=== PATIENT | female | born 1960 | race Hispanic/Latino ===

== ENCOUNTER 2019-08-23 13:13 | Emergency (ER) | payer SELFPAY ==
[~2019-08-23] VITALS: Ht 157.5 cm; Wt 122.5 kg
--- OUTSIDE RECORDS SUMMARY | 2019-08-23 13:16 | XMS REPORT ---
Author Author [facility] [place] Address Unknown Phone Unavailable Care Team Providers Care Panel Wirer Name Role Phone Unavailable Unavailable Problems This patient has no known problems. Allergies, Adverse Reactions, Alerts This patient has no known allergies or adverse reactions. Medications This patient has no known medications. Encounters Start Date/Time End Date/Time Encounter Type Admission Type Attending [facility] Care Department Encounter ID 2019-07-23 09:02:32 2019-07-23 09:02:32 Outpatient [facility] [id number] 2019-07-23 00:00:00 2019-07-23 00:00:00 Outpatient [facility] [id number] 2019-05-09 15:25:39 2019-05-09 15:25:39 Outpatient [facility] [id number] 2019-04-02 00:00:00 2019-04-02 00:00:00 Outpatient [facility] [id number] 2019-03-30 08:46:02 2019-03-30 08:46:02 Outpatient [facility] [id number] 2019-03-16 08:32:19 2019-03-16 08:32:19 Outpatient [facility] [id number] 2019-03-16 08:22:00 2019-03-16 08:22:00 Outpatient [facility] [id number] 2019-03-16 07:09:24 2019-03-16 07:09:24 Outpatient [facility] [id number] 2019-03-16 00:00:00 2019-03-16 00:00:00 Outpatient [facility] [id number] 2019-02-19 09:04:11 2019-02-19 09:04:11 Outpatient [facility] [id number] 2018-12-07 00:00:00 2018-12-07 00:00:00 Outpatient [facility] [id number] 2018-12-07 00:00:00 2018-12-07 00:00:00 Outpatient [facility] [id number] 2018-12-06 00:00:00 2018-12-06 00:00:00 Outpatient [facility] [id number] 2018-11-08 00:00:00 2018-11-08 00:00:00 Outpatient [facility] [id number] 2018-09-20 08:47:02 2018-09-20 08:47:02 Outpatient [facility] [id number] 2018-09-11 09:13:33 2018-09-11 09:13:33 Outpatient [facility] [id number] 2018-09-11 00:00:00 2018-09-11 00:00:00 Outpatient [facility] [id number] 2018-08-07 00:00:00 2018-08-07 00:00:00 Outpatient [facility] [id number] 2018-07-27 00:00:00 2018-07-27 00:00:00 Outpatient [facility] [id number] 2018-07-25 00:00:00 2018-07-25 00:00:00 Outpatient [facility] [id number] 2018-07-24 00:00:00 2018-07-24 00:00:00 Outpatient [facility] [id number] 2018-07-17 15:26:02 2018-07-17 15:26:02 Outpatient [facility] [id number] 2018-07-17 14:15:34 2018-07-17 14:15:34 Outpatient [facility] [id number] 2018-07-11 00:00:00 2018-07-11 00:00:00 Outpatient [facility] [id number] 2018-06-22 09:06:49 2018-06-22 09:06:49 Outpatient [facility] [id number] 2018-06-16 00:00:00 2018-06-16 00:00:00 Outpatient [facility] [id number] 2018-06-14 14:05:05 2018-06-14 14:05:05 Outpatient [facility] [id number] 2018-06-09 00:00:00 2018-06-09 00:00:00 Outpatient [facility] [id number] 2018-06-06 14:28:25 2018-06-06 14:28:25 Outpatient [facility] [id number] 2018-06-06 08:47:00 2018-06-06 08:47:00 Outpatient [facility] [id number] 2018-06-01 00:00:00 2018-06-01 00:00:00 Outpatient [facility] [id number] 2018-06-01 00:00:00 2018-06-01 00:00:00 Outpatient [facility] [id number] 2018-05-31 13:44:42 2018-05-31 13:44:42 Outpatient [facility] [id number] 2018-05-22 08:58:07 2018-05-22 08:58:07 Outpatient [facility] [id number] 2017-12-07 13:11:51 2017-12-07 13:11:51 Outpatient [facility] [id number] 2017-11-21 07:51:19 2017-11-21 07:51:19 Outpatient [facility] [id number] 2017-10-14 00:00:00 2017-10-14 00:00:00 Outpatient [facility] [id number] 2017-10-05 00:00:00 2017-10-05 00:00:00 Outpatient [facility] [id number] 2017-09-22 07:04:49 2017-09-22 07:04:49 Outpatient [facility] [id number] 2017-09-16 00:00:00 2017-09-16 00:00:00 Outpatient [facility] [id number] 2017-09-12 12:58:12 2017-09-12 12:58:12 Outpatient [facility] [id number] 2017-09-12 07:40:58 2017-09-12 07:40:58 Outpatient [facility] [id number] 2017-09-08 07:06:19 2017-09-08 07:06:19 Outpatient [facility] [id number] 2017-09-06 06:58:30 2017-09-06 06:58:30 Outpatient [facility] [id number] 2017-08-25 00:00:00 2017-08-25 00:00:00 Outpatient [facility] [id number] 2017-08-17 08:24:32 2017-08-17 08:24:32 Outpatient [facility] [id number] 2017-08-10 12:05:45 2017-08-10 12:05:45 Outpatient [facility] [id number] 2017-08-10 10:26:12 2017-08-10 10:26:12 Outpatient [facility] [id number] 2017-08-01 08:01:16 2017-08-01 08:01:16 Outpatient [facility] [id number] 2017-08-01 08:01:08 2017-08-01 08:01:08 Outpatient [facility] [id number] 2017-07-13 00:00:00 2017-07-13 00:00:00 Outpatient [facility] [id number] 2017-07-11 08:12:28 2017-07-11 08:12:28 Outpatient [facility] [id number] 2017-07-04 13:05:47 2017-07-04 13:05:47 Outpatient [facility] [id number] 2017-07-04 07:56:10 2017-07-04 07:56:10 Outpatient [facility] [id number] 2017-06-30 00:00:00 2017-06-30 00:00:00 Outpatient [facility] [id number] 2017-06-27 13:32:41 2017-06-27 13:32:41 Outpatient [facility] [id number] 2017-06-27 11:44:52 2017-06-27 11:44:52 Outpatient [facility] [id number] 2017-06-08 00:00:00 2017-06-08 00:00:00 Outpatient [facility] [id number] 2017-05-25 15:21:38 2017-05-25 15:21:38 Outpatient [facility] [id number] 2017-05-16 14:45:15 2017-05-16 14:45:15 Outpatient [facility] [id number] 2017-05-13 00:00:00 2017-05-13 00:00:00 Outpatient [facility] [id number] 2017-05-11 15:30:36 2017-05-11 15:30:36 Outpatient [facility] [id number] 2017-04-28 14:32:18 2017-04-28 14:32:18 Outpatient [facility] [id number] 2017-04-27 12:58:45 2017-04-27 12:58:45 Outpatient [facility] [id number] 2017-04-22 07:29:57 2017-04-22 07:29:57 Outpatient [facility] [id number] 2017-03-04 10:58:35 2017-03-04 10:58:35 Outpatient [facility] [id number]
[2019-08-23] MEDS ORDERED: ASPIRIN 81 MG CHEW TAB PO ONE (14:00)
[2019-08-23 14:19] LABS: BASOPHILS % 0.3 % (0.0-1.0); EOSINOPHILS # (AUTO) 0.3 (0.0-0.4); EOSINOPHILS % 2.7 % (0.0-6.0); HEMATOCRIT 40.9 % (34.2-44.1); HEMOGLOBIN 13.2 g/dL (12.0-16.0); LYMPHOCYTES # (AUTO) 1.9 (1.0-3.2); MEAN CORPUSCULAR HEMOGLOBIN 28.1 pg (28-32); MEAN CORPUSCULAR HGB CONC 32.3 g/dL (31-35); MONOCYTES # (AUTO) 0.7 (0.2-0.8); MONOCYTES % 5.9 % (4.4-11.3); NEUTROPHILS # (AUTO) 9.5 (2.1-6.9); NEUTROPHILS % 75.8 % (38.7-80.0); PLATELET COUNT 355 x10e3/uL (140-360); RED CELL DISTRIBUTION WIDTH 12.9 % (11.7-14.4)
--- NOTE | 2019-08-23 14:27 | Diagnostic Imaging Report ---
EXAMINATION: CHEST SINGLE (PORTABLE) INDICATION: Chest pain COMPARISON: None FINDINGS: LINES/TUBES:EKG leads overlie the chest. LUNGS:The study is underpenetrated, likely related to patient body habitus. There is perihilar fullness and indistinctness of the pulmonary vasculature. PLEURA:No pleural effusion or pneumothorax. MEDIASTINUM:The cardiomediastinal silhouette appears normal in size and shape. BONES/SOFT TISSUES:No acute osseous injury. ABDOMEN:No free air under the diaphragm. IMPRESSION: Underpenetrated study, likely related to patient body habitus. Likely mild pulmonary interstitial edema. No focal pneumonia. Signed by: Navin Diaz MD on 08/23/2019 2:24 PM
[2019-08-23 14:30] LABS: BILIRUBIN,URINE NEGATIVE (NEGATIVE); COLOR,URINE YELLOW (YELLOW); KETONES,URINE NEGATIVE (NEGATIVE); LEUKOCYTE ESTERASE ,URINE NEGATIVE (NEGATIVE); NITRITE,URINE NEGATIVE (NEGATIVE); PROTEIN,URINE DIPSTICK NEGATIVE (NEGATIVE); URINE UROBILINOGEN 0.2 mg/dL (0.2 - 1)
[2019-08-23 14:40] LABS: ALANINE AMINOTRANSFERASE 17 IU/L (0-55); ALBUMIN 3.4 g/dL (3.5-5.0); ALBUMIN/GLOBULIN RATIO 0.8 (0.8-2.0); ALKALINE PHOSPHATASE 91 IU/L (40-150); ANION GAP 11.8 mmol/L (8-16); BLOOD UREA NITROGEN 14 mg/dL (7-26); BUN/CREATININE RATIO 18 (6-25); CALCIUM 9.5 mg/dL (8.4-10.2); CARBON DIOXIDE 27 mmol/L (22-29); CHLORIDE 104 mmol/L (98-107); CREATINE KINASE 84 IU/L (29-168); CREATININE, SERUM 0.79 mg/dL (0.57-1.11); EST GLOMERULAR FILTRATION RATE > 60 ML/MIN (60-); GLUCOSE 128 mg/dL (74-118); POTASSIUM 3.8 mmol/L (3.5-5.1); SODIUM 139 mmol/L (136-145)
[2019-08-23 14:40] LABS: CLARITY,URINE CLEAR (CLEAR)
[2019-08-23 14:45] LABS: EPITHELIAL CELLS,URINE FEW /LPF; RBC,URINE 0-5 /HPF (0-5)
[2019-08-23 14:56] LABS: INR 1.03
[2019-08-23 14:57] LABS: PARTIAL THROMBOPLASTIN TIME 31.5 seconds (23.8-35.5)
[2019-08-23] MEDS ORDERED: KETOROLAC TROMETHAMINE 30 MG/ML VIAL IV ONE (15:07)
[2019-08-23] MEDS ORDERED: KETOROLAC TROME10 MG PO (15:14)
[2019-08-23 15:58] VITALS: BP 151/67
== END 2019-08-23 15:44 | disposition home or self-care (01) ==
LOC: ER 13:13
DX: R07.89 Other chest pain (principal); I10 Essential (primary) hypertension; E11.9 Type 2 diabetes mellitus without complications; E78.5 Hyperlipidemia, unspecified; F41.9 Anxiety disorder, unspecified
CPT/HCPCS: 36415; 71045; 80053; 81001; 82550; 82553; 83735; 84484; 85025; 85610; 85730; 93005; 96374; 99284; J1885

== ENCOUNTER 2020-04-04 09:52 | Inpatient (IN) | payer SELFPAY ==
[~2020-04-04] VITALS: Ht 157.5 cm; Wt 108.9 kg
[~2020-04-04 09:52] MED LIST: KETOROLAC TROME10 MG PO
--- NOTE | 2020-04-04 11:08 | NUR ---
recd' report from tessie austin, for continuity of care
[2020-04-04 11:10] LABS: BASOPHILS % 0.1 % (0.0-1.0); EOSINOPHILS % 0.5 % (0.0-6.0); HEMATOCRIT 39.3 % (34.2-44.1); HEMOGLOBIN 12.7 g/dL (12.0-16.0); LYMPHOCYTES # (AUTO) 1.3 (1.0-3.2); LYMPHOCYTES % 16.7 % (18.0-39.1); MEAN CORPUSCULAR HEMOGLOBIN 27.7 pg (28-32); MEAN CORPUSCULAR HGB CONC 32.3 g/dL (31-35); MEAN CORPUSCULAR VOLUME 85.6 fL (81-99); MONOCYTES # (AUTO) 0.5 (0.2-0.8); MONOCYTES % 5.9 % (4.4-11.3); NEUTROPHILS # (AUTO) 5.8 (2.1-6.9); NEUTROPHILS % 76.4 % (38.7-80.0); PLATELET COUNT 230 x10e3/uL (140-360); RED BLOOD COUNT 4.59 x10e6/uL (3.6-5.1)
[2020-04-04 11:20] LABS: INR 0.96; PROTHROMBIN TIME 13.3 seconds (11.9-14.5)
[2020-04-04 11:21] LABS: PARTIAL THROMBOPLASTIN TIME 30.1 seconds (23.8-35.5)
[2020-04-04] MEDS: CEFTRIAXONE SOD 1 GM/NS 50 ML 50 ML IV SCH (11:27)
--- NOTE | 2020-04-04 11:27 | Diagnostic Imaging Report ---
EXAMINATION: CHEST SINGLE (PORTABLE) INDICATION: Shortness of breath COMPARISON: None FINDINGS: LINES/TUBES:None LUNGS:The lungs are moderately inflated. Increased bilateral lower lung interstitial opacities. PLEURA:No pleural effusion or pneumothorax. MEDIASTINUM:The cardiomediastinal silhouette appears normal in size and shape. Atherosclerotic calcifications of the thoracic aorta. BONES/SOFT TISSUES:No acute osseous injury. ABDOMEN:No free air under the diaphragm. IMPRESSION: Increased bilateral lower lung interstitial opacities may represent mild pulmonary interstitial edema however viral pneumonitis could also have this appearance and should be clinically excluded. Signed by: Navin Diaz MD on 04/04/2020 11:24 AM
[2020-04-04 11:28] LABS: ALANINE AMINOTRANSFERASE 39 IU/L (0-55); ALBUMIN 2.9 g/dL (3.5-5.0); ALBUMIN/GLOBULIN RATIO 0.6 (0.8-2.0); ALKALINE PHOSPHATASE 104 IU/L (40-150); ANION GAP 13.2 mmol/L (8-16); BLOOD UREA NITROGEN 9 mg/dL (7-26); BUN/CREATININE RATIO 13 (6-25); CALCIUM 8.7 mg/dL (8.4-10.2); CARBON DIOXIDE 27 mmol/L (22-29); CHLORIDE 106 mmol/L (98-107); CREATINE KINASE 63 IU/L (29-168); CREATININE, SERUM 0.68 mg/dL (0.57-1.11); EST GLOMERULAR FILTRATION RATE > 60 ML/MIN (60-); GLUCOSE 145 mg/dL (74-118); POTASSIUM 4.2 mmol/L (3.5-5.1); SODIUM 142 mmol/L (136-145)
[2020-04-04] MEDS: AZITHROMYCIN 500MG/NS 250 ML 250 ML IV SCH (13:21)
[2020-04-04] MEDS ORDERED: SODIUM CHLORIDE 0.9% 1000ML 1,000 ML IV SCH (14:15)
[2020-04-04] MEDS ORDERED: ALBUTEROL SULFATE HFA 8GM INHALATION AEROSOL INH PRN (14:15)
--- NOTE | 2020-04-04 14:41 | NUR ---
placed on 2l of o2 per dr. jackson's orders
--- NOTE | 2020-04-04 14:56 | Emergency Department Note ---
History of Present Illnes History of Present Illness Chief Complaint: COVID PUI History of Present Illness This is a 60 year old female here for cough and shortness of breath for the last 2 weeks, states had strep 2 weeks ago and continued with cough and progressed to SOB. has appt for COVID test on Tuesday. Historian: Patient Arrival Mode: Car Commission Broker Required: No Onset (how long ago): day(s) (12) Location: ALL OVER Quality: ACHY Radiation: Reports non-radiation Severity: moderate Onset quality: gradual Timing of current episode: intermittent Progression: waxing and waning Chronicity: new Context: Reports recent illness Relieving factors: none Exacerbating factors: none Associated symptoms: Reports cough, Reports fever/chills, Reports malaise, Reports weakness Past Medical/Family History Physician Review I have reviewed the patient's past medical and family history. Any updates have been documented here. Past Medical History Recent Fever: No Clinical Suspicion of Infectio: No New/Unexplained Change in Ment: No Past Medical History: Hypertension, Diabetes, Anxiety, Hyperlipedemia Other Medical History: Arthritis Bladder problems Past Surgical History: Hysterectomy Other Surgery: Bilateral carpal tunnel surgery Left knee arthroscopy Social History Smoking Cessation: Never Smoker Counseling Performed: No Alcohol Use: None Any Illegal Drug Use: No TB Exposure/Symptoms: No Physically hurt or threatened: No Other Any Pre-Existing Lines (PICC,: No Is patient up to date on immun: Yes Last Flu: utd Last Pneumovax: utd Review of Systems Review of Systems Constitutional: Reports fever, Reports malaise, Reports weakness EENTM: Reports no symptoms Cardiovascular: Reports no symptoms Respiratory: Reports chest congestion, Reports cough, Reports dyspnea, Reports dyspnea on exertion Gastrointestinal: Reports no symptoms Genitourinary: Reports no symptoms Musculoskeletal: Reports no symptoms Integumentary: Reports no symptoms Neurological: Reports no symptoms Psychological: Reports no symptoms Endocrine: Reports no symptoms Hematological/Lymphatic: Reports no symptoms Physical Exam Related Data Allergies: Coded Allergies: codeine (Verified Allergy, Intermediate, hives, itching, rash, 08/23/19) metronidazole (Verified Allergy, Intermediate, hives, itching, rash, 08/23/19) morphine (Verified Allergy, Intermediate, itching, rash, hives, 08/23/19) Triage Vital Signs Vital Signs Date Time Temp Pulse Resp B/P (MAP) Pulse Ox O2 Delivery O2 Flow Rate FiO2 04/04/20 10:15 98.7 64 20 151/71 94 Vital signs reviewed: Yes (O2 SAT 93% ON RA) Physical Exam CONSTITUTIONAL Constitutional: Present well-developed, Present well-nourished HENT HENT: Present normocephalic, Present atraumatic, Present oropharynx clear/moist, Present nose normal HENT L/R: Present left ext ear normal, Present right ext ear normal EYES Eyes: Reports PERRL, Reports conjunctivae normal NECK Neck: Present ROM normal PULMONARY Pulmonary: Present other (DECR BREATH SOUNDS THROUGHOUT) CARDIOVASCULAR Cardiovascular: Present regular rhythm, Present heart sounds normal, Present capillary refill normal, Present normal rate GASTROINTESTINAL Abdominal: Present soft, Present nontender, Present bowel sounds normal GENITOURINARY Genitourinary: Present exam deferred SKIN Skin: Present warm, Present dry MUSCULOSKELETAL Musculoskeletal: Present ROM normal NEUROLOGICAL Neurological: Present alert, Present oriented x 3, Present no gross motor or sensory deficits PSYCHOLOGICAL Psychological: Present mood/affect normal, Present judgement normal Results Laboratory Result Diagram: 04/04/20 1057 04/04/20 1057 Laboratory Laboratory Tests Test 04/04/20 10:57 White Blood Count 7.61 x10e3/uL (4.8-10.8) Red Blood Count 4.59 x10e6/uL (3.6-5.1) Hemoglobin 12.7 g/dL (12.0-16.0) Hematocrit 39.3 % (34.2-44.1) Mean Corpuscular Volume 85.6 fL (81-99) Mean Corpuscular Hemoglobin 27.7 pg (28-32) Mean Corpuscular Hemoglobin Concent 32.3 g/dL (31-35) Red Cell Distribution Width 13.0 % (11.7-14.4) Platelet Count 230 x10e3/uL (140-360) Neutrophils (%) (Auto) 76.4 % (38.7-80.0) Lymphocytes (%) (Auto) 16.7 % (18.0-39.1) Monocytes (%) (Auto) 5.9 % (4.4-11.3) Eosinophils (%) (Auto) 0.5 % (0.0-6.0) Basophils (%) (Auto) 0.1 % (0.0-1.0) Neutrophils # (Auto) 5.8 (2.1-6.9) Lymphocytes # (Auto) 1.3 (1.0-3.2) Monocytes # (Auto) 0.5 (0.2-0.8) Eosinophils # (Auto) 0.0 (0.0-0.4) Basophils # (Auto) 0.0 (0.0-0.1) Absolute Immature Granulocyte (auto 0.03 x10e3/uL (0-0.1) Prothrombin Time 13.3 seconds (11.9-14.5) Prothromb Time International Ratio 0.96 Activated Partial Thromboplast Time 30.1 seconds (23.8-35.5) Sodium Level 142 mmol/L (136-145) Potassium Level 4.2 mmol/L (3.5-5.1) Chloride Level 106 mmol/L (98-107) Carbon Dioxide Level 27 mmol/L (22-29) Anion Gap 13.2 mmol/L (8-16) Blood Urea Nitrogen 9 mg/dL (7-26) Creatinine 0.68 mg/dL (0.57-1.11) Estimat Glomerular Filtration Rate > 60 ML/MIN (60-) BUN/Creatinine Ratio 13 (6-25) Glucose Level 145 mg/dL (74-118) Calcium Level 8.7 mg/dL (8.4-10.2) Total Bilirubin 0.5 mg/dL (0.2-1.2) Aspartate Amino Transf (AST/SGOT) 55 IU/L (5-34) Alanine Aminotransferase (ALT/SGPT) 39 IU/L (0-55) Alkaline Phosphatase 104 IU/L (40-150) Creatine Kinase 63 IU/L (29-168) Creatine Kinase MB 0.10 ng/mL (0-5.0) Troponin I 0.004 ng/mL (0-0.300) B-Type Natriuretic Peptide 27.6 pg/mL (0-100) Total Protein 7.8 g/dL (6.5-8.1) Albumin 2.9 g/dL (3.5-5.0) Globulin 4.9 g/dL (2.3-3.5) Albumin/Globulin Ratio 0.6 (0.8-2.0) Lab results reviewed: Yes Imaging Imaging results reviewed: Yes Impressions EXAMINATION: CHEST SINGLE (PORTABLE) INDICATION: Shortness of breath COMPARISON: None FINDINGS: LINES/TUBES:None LUNGS:The lungs are moderately inflated. Increased bilateral lower lung interstitial opacities. PLEURA:No pleural effusion or pneumothorax. MEDIASTINUM:The cardiomediastinal silhouette appears normal in size and shape. Atherosclerotic calcifications of the thoracic aorta. BONES/SOFT TISSUES:No acute osseous injury. ABDOMEN:No free air under the diaphragm. IMPRESSION: Increased bilateral lower lung interstitial opacities may represent mild pulmonary interstitial edema however viral pneumonitis could also have this appearance and should be clinically excluded. Signed by: Navin Diaz MD on 04/04/2020 11:24 AM Procedures 12 Lead ECG Interpretation ECG Interpretation : ECG: ECG 1 Commission Broker: Interpreted by ED physician Date: Apr 04, 2020 Time: 10:39 Rhythm: sinus rhythm Rate: normal (65) Conduction: right bundle branch block ST segments normal: Yes T wave inversion: aVR, V1, V2 Clinical Impression: abnormal ECG Assessment & Plan Medical Decision Making MDM HYPOXIA, SOB/COUGH - CHECK CBC, CHEM, CARDIAC MARKERS, ECG, CXR, COVID SWAB -R/O PNEUMONIA, COVID19, STEMI/NSTEMI, CHF, ELECTROLYTE ABNL Reassessment Reassessment ADMIT TO DR IRIZARRY (ON-CALL), CONSULT TO [facility]O (I SPOKE WITH ALL) Assessment & Plan Final Impression: (1) Pneumonia (2) Hypoxia Depart Disposition: ADMITTED Last Vital Signs Date Time Temp Pulse Resp B/P (MAP) Pulse Ox O2 Delivery O2 Flow Rate FiO2 04/04/20 14:03 66 17 101/67 94 04/04/20 11:27 99.6 Home Meds Active Scripts Ketorolac Tromethamine (TORADOL) 10 Mg Tablet, 10 MG PO TID PRN for MILD PAIN (1-3), #15 TAB Prov:TIFFANY KINCAID DITCH REPAIRER 08/23/19 Medications in the ED Ceftriaxone Sodium 50 ml @ 100 mls/hr Q24H IV Last administered on 04/04/20at 11:27; Admin Dose 100 MLS/HR; Start 04/04/20 at 10:30; Stop 04/11/20 at 10:29 Azithromycin 250 ml @ 200 mls/hr DAILY IV Last administered on 04/04/20at 13:21; Admin Dose 200 MLS/HR; Start 04/04/20 at 11:00; Stop 04/11/20 at 10:59 Sodium Chloride 1,000 ml @ 100 mls/hr Q10H IV ; Start 04/04/20 at 14:15; Stop 04/05/20 at 00:14 Albuterol 2 PUFFS RQ4H PRN INH SHORTNESS OF BREATH; Start 04/04/20 at 14:15; Stop 05/04/20 at 14:14 EDILSON WOODS MD Apr 04, 2020 14:56
[2020-04-04] MEDS ORDERED: ZOLPIDEM TARTRATE 5 MG TAB PO PRN (15:45)
[2020-04-04] MEDS ORDERED: ACETAMINOPHEN 325 MG TAB PO PRN (15:45)
[2020-04-04] MEDS ORDERED: ONDANSETRON HCL INJ 2MG/ML 2ML 2 MG/ML VIAL IV PRN (15:45)
[2020-04-04] MEDS ORDERED: DEXTROSE 50% SYRINGE 50 ML IV PRN (15:45)
[2020-04-04] MEDS: INSULIN REGULAR, HUMAN 100 UNIT/1 ML 3ML VIAL SQ SCH ×2 (16:39→21:00)
[2020-04-04] MEDS ORDERED: DEXAMETHASONE SOD PHOS 10 MG/1 ML VIAL IV SCH (17:00)
--- NOTE | 2020-04-04 19:54 | NUR ---
CARDIAC MARKERS DRAWN BY LAB
[2020-04-04 20:20] LABS: ALANINE AMINOTRANSFERASE 39 IU/L (0-55); ALBUMIN 2.9 g/dL (3.5-5.0); ALBUMIN/GLOBULIN RATIO 0.6 (0.8-2.0); ALKALINE PHOSPHATASE 102 IU/L (40-150); ANION GAP 11.8 mmol/L (8-16); BLOOD UREA NITROGEN 8 mg/dL (7-26); BUN/CREATININE RATIO 13 (6-25); CALCIUM 8.6 mg/dL (8.4-10.2); CARBON DIOXIDE 27 mmol/L (22-29); CHLORIDE 106 mmol/L (98-107); CREATININE, SERUM 0.64 mg/dL (0.57-1.11); EST GLOMERULAR FILTRATION RATE > 60 ML/MIN (60-); GLUCOSE 160 mg/dL (74-118); POTASSIUM 3.8 mmol/L (3.5-5.1); SODIUM 141 mmol/L (136-145)
[2020-04-04 20:40] VITALS: BP 127/68
--- NOTE | 2020-04-04 20:40 | NUR ---
PATIENT IS A NEW ADMIT THAT ARRIVED VIA STRETCHER. PATIENT IS AWAKE AND TALKING. PATIENT HAS BEEN TRANSFERRED INTO THE BED. BED IS IN THE LOWEST POSITION AND CALL LIGHT IS WITHIN REACH. WILL CONTINUE TO MONITOR PATIENT.
[2020-04-04 21:00] LABS: CREATINE KINASE MB 0.1 ng/mL (0-5.0)
[2020-04-04] MEDS: ENOXAPARIN SOD INJ 60 MG/0.6 ML SYR SC SCH (21:00)
--- NOTE | 2020-04-04 21:32 | Consultation ---
DATE OF CONSULTATION: Pulmonary Critical Care Consultation CHIEF COMPLAINT: Cough and dyspnea. HISTORY OF PRESENT ILLNESS: The patient is a 60-year-old woman. She has a history of hypertension and diabetes. About 2 weeks ago, she developed a "sore throat." She was initially treated for strep throat. She subsequently developed worsening fatigue and dyspnea. She also has noted fevers and cough. She came to the emergency department and was found to have bilateral infiltrates on her chest x-ray. Her COVID test is still pending. PAST MEDICAL HISTORY: 1. Hypertension. 2. Diabetes. PAST SURGICAL HISTORY: Noncontributory. ALLERGIES: THE PATIENT IS ALLERGIC TO CODEINE AND METRONIDAZOLE. FAMILY HISTORY: Family history is noncontributory. SOCIAL HISTORY: The patient is not a smoker. She is not a drinker. REVIEW OF SYSTEMS: The patient does report some fevers. She has no headache. She has no chest pain. She does have some cough. She has some dyspnea. She has no abdominal pain. She has no nausea or vomiting. She has no leg edema. PHYSICAL EXAMINATION: VITAL SIGNS: The patient is afebrile. The blood pressure is 101/67, saturation is 98%, and respiratory rate is 16. The pulse is 62. T-max is 99.6. HEENT: Shows no facial swelling or erythema. CARDIAC: Reveals regular rate and rhythm with normal S1 and S2. LUNGS: Auscultation of lungs reveals rhonchorous breath sounds bilaterally. There is no wheezing. ABDOMEN: Soft and nontender. There is no rebound or guarding. EXTREMITIES: Shows no leg edema or calf tenderness. There is no cyanosis or clubbing. SKIN: Shows no rashes. NEUROLOGICAL: Shows no focal abnormalities. LABORATORY DATA: White blood cell count is 7.6 and hemoglobin is 12.7. The platelet count is 230. BUN to creatinine ratio is normal. The other electrolytes are within normal limits. Albumin is 2.9. RADIOGRAPHIC DATA: Chest x-ray shows lower lobe interstitial opacities. IMPRESSION: 1. Viral pneumonia and possible COVID-19 infection. 2. Diabetes. 3. Hypertension. PLAN: 1. Continue oxygen. 2. Zithromax and Rocephin. 3. Lovenox 0.5 mg subcutaneous q.12. 4. Albuterol inhaler p.r.n. 5. Dexamethasone. 6. Monitor and control blood sugars closely. MD SHARITA Alicea/DANISHA /[id number]
[2020-04-04 21:45] VITALS: BP 127/68
--- NOTE | 2020-04-04 22:42 | History and Physical ---
CHIEF COMPLAINT: The patient is a 60-year-old female, who came in with cough and shortness of breath. HISTORY OF PRESENTING ILLNESS: Ms. Hernandez, who was recently diagnosed with a strep throat, continues to have progression of cough and shortness of breath. She was supposed to be tested for COVID-19 on Tuesday, but the patient became achy and had pain, muscle tenderness, weakness and also shortness of breath, came into the emergency room, was admitted to the hospital for possibly a COVID. COVID has been tested. Test has not come back yet. PAST MEDICAL HISTORY: History of hypertension, history of diabetes mellitus, history of anxiety, and history of hyperlipidemia. MEDICATIONS: As per medical reconciliation sheet. PAST SURGICAL HISTORY: History of hysterectomy and bilateral carpal tunnel surgery, history of left knee arthroscopy. SOCIAL HISTORY: No history of smoking. No history of EtOH. No IV drug abuse either. REVIEW OF SYSTEMS: Positive for shortness of breath. No chest pain. Reports dyspnea on exertion. No orthopnea. No PND. No depression. No anxiety at this time. No dysuria. No hematuria. Reports fever, malaise and weakness for generalized symptoms. ALLERGIES: THE PATIENT HAS ALLERGY TO CODEINE, ALLERGIC TO METRONIDAZOLE AND MORPHINE. PHYSICAL EXAMINATION: VITAL SIGNS: Temperature is 98.7 on arrival, pulse of 64, respirations of 20, blood pressure is 151/71, and pulse oximetry of 94% on room air on arrival. HEENT: Normocephalic and atraumatic. Pupils are reactive. CVS: S1 and S2 normal. LUNGS: Decreased breath sounds throughout the whole lung christy. Positive for rhonchi. CVS: S1 and S2 normal. Regular rate and rhythm. Capillary refills are normal. ABDOMEN: Soft, nontender, and nondistended. EXTREMITIES: No clubbing. No cyanosis. Positive for trace edema. NEUROLOGIC: Alert and oriented x3. No sensory or motor deficits noted. LABORATORY DATA: White count on CBC 7.61, hemoglobin of 12.7, hematocrit of 39.3, and platelets of 230. BUN of 9, creatinine 0.68, and glucose of 145. Serology; coronavirus is still pending. Chemistries; BNP was 27.6. Coags; PT 13.3 and INR 0.96. IMAGING: Chest x-ray shows bilateral lower lung interstitial opacities, mild interstitial pulmonary edema, pneumonitis, and viral pneumonitis is a picture. ASSESSMENT: Ms. Felisha Hernandez with possible COVID-19, diabetes mellitus, hypertension, and hypoxia. The patient has been started on 6 mg of Decadron from the ER q.24 hours, sodium chloride fluid infusion at 100 mL an hour, azithromycin 500 mg every day, Rocephin 1 g IV daily has been started too. Insulin sliding scale has been started. The patient also has been given Zofran and . The patient also has been started on enoxaparin 60 mg q.12 hours and albuterol and Atrovent treatment. Further recommendation per clinical course. We will continue to monitor the patient. The patient has a consult also with Dr. Sharma and Dr. Jerel Diaz from Pulmonology. Currently, the patient's vitals are stable. Keep her in a COVID delacruz. MD HERMAN Maciel/MODL /[id number]
[2020-04-04] MEDS ORDERED: TRADJENTA5 MG PO (23:18)
[2020-04-04] MEDS ORDERED: LORATADINE10 MG PO (23:18)
[2020-04-04] MEDS ORDERED: ZOLOFT50 MG PO (23:18)
[2020-04-04] MEDS ORDERED: GLIPIZIDE5 MG PO (23:18)
[2020-04-04] MEDS ORDERED: OMEPRAZOLE40 MG PO (23:18)
[2020-04-04] MEDS ORDERED: PROPRANOLOL HCL10 MG PO (23:18)
[2020-04-04] MEDS ORDERED: CANDESARTAN CILE8 MG PO (23:18)
[2020-04-04] MEDS ORDERED: DETROL LA4 MG PO (23:18)
[2020-04-04] MEDS ORDERED: GABAPENTIN300 MG PO (23:18)
[2020-04-04] MEDS ORDERED: PRAVACHOL40 MG PO (23:18)
[2020-04-04 23:21] VITALS: BP 127/68
[2020-04-05] VITALS (7 sets, daily range): BP systolic 129–143; BP diastolic 61–75
[2020-04-05 06:23] LABS: BASOPHILS % 0.2 % (0.0-1.0); HEMATOCRIT 40.9 % (34.2-44.1); LYMPHOCYTES # (AUTO) 1.1 (1.0-3.2); LYMPHOCYTES % 18.6 % (18.0-39.1); MEAN CORPUSCULAR HEMOGLOBIN 27.2 pg (28-32); MEAN CORPUSCULAR HGB CONC 31.8 g/dL (31-35); MEAN CORPUSCULAR VOLUME 85.6 fL (81-99); MONOCYTES # (AUTO) 0.2 (0.2-0.8); MONOCYTES % 3.6 % (4.4-11.3); NEUTROPHILS # (AUTO) 4.7 (2.1-6.9); NEUTROPHILS % 77.1 % (38.7-80.0); PLATELET COUNT 240 x10e3/uL (140-360); RED BLOOD COUNT 4.78 x10e6/uL (3.6-5.1); RED CELL DISTRIBUTION WIDTH 12.6 % (11.7-14.4)
[2020-04-05 06:46] LABS: ALANINE AMINOTRANSFERASE 44 IU/L (0-55); ALBUMIN/GLOBULIN RATIO 0.6 (0.8-2.0); ALKALINE PHOSPHATASE 108 IU/L (40-150); ANION GAP 13.1 mmol/L (8-16); BLOOD UREA NITROGEN 9 mg/dL (7-26); BUN/CREATININE RATIO 13 (6-25); CALCIUM 9.1 mg/dL (8.4-10.2); CARBON DIOXIDE 26 mmol/L (22-29); CHLORIDE 107 mmol/L (98-107); EST GLOMERULAR FILTRATION RATE > 60 ML/MIN (60-); GLUCOSE 191 mg/dL (74-118); POTASSIUM 4.1 mmol/L (3.5-5.1); SODIUM 142 mmol/L (136-145)
[2020-04-05 07:05] LABS: CREATINE KINASE MB 0.7 ng/mL (0-5.0)
--- NOTE | 2020-04-05 07:45 | Diagnostic Imaging Report ---
EXAMINATION: CHEST SINGLE (PORTABLE) INDICATION: PNEMONIA COMPARISON: 04/04/2020 FINDINGS: LINES/TUBES:None LUNGS:Unchanged bilateral patchy opacities compatible with multifocal pneumonia PLEURA:No pleural effusion or pneumothorax. MEDIASTINUM:The cardiomediastinal silhouette is obscured by adjacent opacity. BONES/SOFT TISSUES:No acute osseous finding. ABDOMEN:No free air under the diaphragm. IMPRESSION: Unchanged bilateral patchy opacities compatible with multifocal pneumonia Signed by: Fabio Parks MD on 04/05/2020 7:41 AM
[2020-04-05] MEDS: INSULIN REGULAR, HUMAN 100 UNIT/1 ML 3ML VIAL SQ SCH ×4 (10:37→21:00)
[2020-04-05] MEDS: AZITHROMYCIN 500MG/NS 250 ML 250 ML IV SCH (11:28)
[2020-04-05] MEDS: CEFTRIAXONE SOD 1 GM/NS 50 ML 50 ML IV SCH (11:28)
[2020-04-05] MEDS: ENOXAPARIN SOD INJ 60 MG/0.6 ML SYR SC SCH ×2 (11:28→22:36)
--- NOTE | 2020-04-05 13:00 | Progress Note ---
DATE: SUBJECTIVE: The patient still has some dyspnea on exertion. There is minimal cough and congestion. She is using oxygen. PHYSICAL EXAMINATION: VITAL SIGNS: The patient is afebrile. The vital signs are stable. HEENT: Shows no facial swelling or erythema. CARDIAC: Reveals regular rate and rhythm with normal S1 and S2. LUNGS: Auscultation of the lungs reveals crackles at the bases. There is no wheezing. ABDOMEN: Soft and nontender. There is no rebound or guarding. EXTREMITIES: Shows no leg edema or calf tenderness. There is no cyanosis or clubbing. SKIN: Shows no rashes. NEUROLOGICAL: Shows no focal abnormalities in the new line. IMPRESSION: 1. Viral pneumonia and COVID-19 infection. 2. Diabetes. 3. Hypertension. PLAN: 1. Continue oxygen. 2. Antibiotics. 3. Lovenox. 4. Dexamethasone. Primitivo Saha MD [facility]/CATIAL /[id number]
--- NOTE | 2020-04-05 15:42 | NUR ---
Spoke to Alis VILLARREAL. She stated she tested pt for home oxygen. Pt does not qualify. To be discharged today
--- NOTE | 2020-04-05 19:15 | NUR ---
RECEIVED REPORT FROM DAY NURSE. PATIENT IS RESTING IN THE BED. TELEMETRY IS ATTACHED. NO COMPLAINTS OF PAIN OR DISCOMFORT NOTED. WILL CONTINUE TO MONITOR PATIENT.
--- NOTE | 2020-04-05 21:41 | Consultation ---
DATE OF CONSULTATION: HISTORY OF PRESENT ILLNESS: Ms. Hernandez is a very pleasant 60-year-old female, comes in with fever and chills. She was recently diagnosed with strep pneumonia. She continued to have cough and shortness of breath. COVID-19 was ordered, came back positive, so she is being admitted. PAST MEDICAL HISTORY: Hypertension, diabetes mellitus, and hyperlipidemia. PAST SURGICAL HISTORY: Denies. ALLERGIES: NKA. SOCIAL HISTORY: There is no smoking, drug abuse, or alcohol abuse. FAMILY HISTORY: Otherwise unremarkable. LABORATORY DATA: Her COVID was positive. Sodium 142, potassium 4.1, and creatinine 0.7. PHYSICAL EXAMINATION: GENERAL: She is currently alert and oriented. Does not seem to be in acute distress. VITAL SIGNS: Stable, afebrile. She is saturating 95% on room air. HEENT: She is not icteric. NECK: Supple. CHEST: Clear. HEART: S1 and S2. No S3, S4, or murmur. ABDOMEN: Soft. IMPRESSION: 1. COVID-19 present on admission, pneumonia atypical, probably bacterial pneumonia. Agree with Rocephin, azithromycin, and Lovenox. 2. Diabetes. I would recommend to discontinue dexamethasone since she is not hypoxemic. She continued to improve, to be discharged home with Z-Anthony and albuterol as needed for cough. MD JOYCELYN Israel/DANISHA /[id number]
[2020-04-06] VITALS: BP 114/66
[2020-04-06 04:00] VITALS: BP 136/71
[2020-04-06 04:45] VITALS: BP 114/66
--- NOTE | 2020-04-06 07:04 | NUR ---
report given to day nurse. patient is resting in room. no signs of distress of noted.
[2020-04-06] MEDS: ENOXAPARIN SOD INJ 60 MG/0.6 ML SYR SC SCH (08:28)
[2020-04-06] MEDS: AZITHROMYCIN 500MG/NS 250 ML 250 ML IV SCH (08:28)
[2020-04-06 08:47] VITALS: BP 116/68
[2020-04-06] MEDS: INSULIN REGULAR, HUMAN 100 UNIT/1 ML 3ML VIAL SQ SCH ×2 (09:20→12:27)
[2020-04-06 09:26] VITALS: BP 116/68
[2020-04-06] MEDS: CEFTRIAXONE SOD 1 GM/NS 50 ML 50 ML IV SCH (11:02)
--- NOTE | 2020-04-06 11:28 | Progress Note ---
DATE: SUBJECTIVE: The patient is feeling better. She has less dyspnea and less cough. PHYSICAL EXAMINATION: VITAL SIGNS: The patient is afebrile. The blood pressure is 116/68, saturation is 97%, and the pulse is 67. HEENT: Shows no facial swelling or erythema. CARDIAC: Reveals a regular rate and rhythm with normal S1 and S2. There are no murmurs or rubs. LUNGS: Auscultation of lungs reveals crackles at both bases. There is no wheezing. ABDOMEN: Soft and nontender. There is no rebound or guarding. EXTREMITIES: Shows no leg edema or calf tenderness. There is no cyanosis or clubbing. SKIN: Shows no rashes. NEUROLOGICAL: Shows no focal abnormalities. IMPRESSION: 1. Viral pneumonia and COVID-19 infection. 2. Diabetes. 3. Hypertension. PLAN: 1. Continue oxygen. 2. Continue antibiotics. 3. Lovenox. 4. Dexamethasone. 5. Discharge home today. MD SHARITA Alicea/DANISHA /[id number]
[2020-04-06 13:50] VITALS: BP 142/63
[2020-04-06] MEDS ORDERED: AZITHROMYCIN250 MG PO (14:00)
--- NOTE | 2020-04-06 14:55 | NUR ---
Right FA IV discontinued. No signs of infiltration noted. 2x2 gauze and tape placed. Taken via wheelchair to personal car. AAOX4 to time, person, place, situation. Respirations even and unlabored. SPO2 96% on room air. Discharge instructions, rx, and all personal belongings taken with patient.
[2020-04-06] MEDS ORDERED: GABAPENTIN 300 MG CAP PO SCH (15:00)
[2020-04-06] MEDS ORDERED: SIMVASTATIN 40 MG TAB PO SCH (21:00)
[2020-04-06] MEDS ORDERED: SIMVASTATIN 20 MG TAB PO SCH (21:00)
[2020-04-07] MEDS ORDERED: GLIPIZIDE 5 MG TAB PO SCH (08:00)
[2020-04-07] MEDS ORDERED: PANTOPRAZOLE SOD 40 MG TABEC PO SCH (09:00)
[2020-04-07] MEDS ORDERED: TOLTERODINE TARTRATE 4 MG CAPCR PO SCH (09:00)
[2020-04-07] MEDS ORDERED: SERTRALINE HCL 50 MG TAB PO SCH (09:00)
[2020-04-07] MEDS ORDERED: LORATADINE 10 MG TAB PO SCH (09:00)
--- NOTE | 2020-04-07 09:57 | History and Physical ---
HISTORY OF PRESENT ILLNESS: A 60-year-old lady with a history of diabetes mellitus and diabetic neuropathy, was in usual state of health until the patient started with shortness of breath and was seen by her primary care physician. She had strep 2 weeks ago and the patient came into the emergency room with abdominal pain and back pain. DICTATION ENDS HERE MD HERMAN Maciel/MODL /[id number]
== END 2020-04-06 14:55 | disposition home or self-care (01) | DRG 177 ==
LOC: ER 09:52 → ERHOLD 14:07 → IMCU 20:48
PROVIDERS: ADMIT Family Medicine; ATTEND Family Medicine
DX: U07.1 COVID-19 (principal); J12.89 Other viral pneumonia; J96.01 Acute respiratory failure with hypoxia; J15.9 Unspecified bacterial pneumonia; Z68.41 Body mass index [BMI] 40.0-44.9, adult; I10 Essential (primary) hypertension; E11.9 Type 2 diabetes mellitus without complications; F41.9 Anxiety disorder, unspecified; E78.5 Hyperlipidemia, unspecified; Z88.5 Allergy status to narcotic agent; Z88.8 Allergy status to other drugs, medicaments and biological substances; E66.01 Morbid (severe) obesity due to excess calories
CPT/HCPCS: 36415; 71045; 80053; 82550; 82553; 82948; 83880; 84484; 85025; 85610; 85730; 87040; 87635; 93005; 96361; 99284; J0456; J0696; J1100; J1650; J1817; J7030